=== PATIENT | female | born 1950 | race Caucasian/White ===

== ENCOUNTER 2016-11-18 17:16 | Emergency (ER) | payer OTHER ==
[~2016-11-18 17:16] MED LIST: ASABAYER PO; CAT1 PO; CRESTOR20 MG PO; HUMALOG SC; LAMICTAL200 MG PO; LEVEMIR SC; LISINOPRIL40 MG PO; NAUSEA MED PO; NORV10 PO; PCET PO; PRILO PO; TOPXL25 PO; TYLENOL ARTH650 MG PO; VITC500 PO
[2016-11-18 18:13] LABS: BASOPHILS 0.1 %; BASOPHILS ABSOLUTE 0.01 10/3/uL (0.0-0.16); EOSINOPHILS 0.4 %; EOSINOPHILS ABSOLUTE 0.03 10/3/uL (0.0-0.53); HEMOGLOBIN 12.3 g/dL (12.0-16.0); IMMATURE GRANULOCYTES 0.3 %; IMMATURE GRANULOCYTES ABSOLUTE 0.02 10/3/uL (0.0-0.11); LYMPHOCYTES 17.9 %; MEAN CORPUS HGB CONC 32.7 g/dL (32.0-36.0); MEAN CORPUSCULAR HEMOGLOB 28.2 pg (26.0-34.0); MEAN CORPUSCULAR VOLUME 86.2 fL (80-100); MEAN PLATELET VOLUME 10.2 fL (9.2-13.0); MONOCYTES 8.8 %; MONOCYTES ABSOLUTE 0.64 10/3/uL (0.21-1.20); NEUTROPHILS 72.5 %; NEUTROPHILS ABSOLUTE 5.25 10/3/uL (2.02-8.40); PLATELET COUNT 235 10/3/uL (150-400); RBC DISTRIBUTION WIDTH 14.1 % (12.0-16.0); RED CELL COUNT 4.36 10/6/uL (4.0-5.6); WHITE BLOOD CELLS 7.3 10/3/uL (4.5-10.5)
[2016-11-18 18:15] LABS: HEMATOCRIT 37.6 % (36.0-48.0); MANUAL DIFF NO %
[2016-11-18 18:21] LABS: INTERNATIONAL NORMAL RATI 1.2 UNITS (-); PARTIAL THROMBO TIME 33.3 SEC (22.5-37.2); PROTIME (NOT ORD) 14.9 SEC (12.0-14.5)
[2016-11-18 18:30] LABS: BUN (BLOOD UREA NITROGEN) 15 MG/DL (6-23); CALCIUM, SERUM 8.3 MG/DL (8.5-10.4); CHEST PAIN PROFILE TAT 0 Hrs 21 Mins; CHLORIDE, SERUM 106 MMOL/L (96-112); CO2 (CARBON DIOXIDE) 26 MMOL/L (24-34); CREATININE 1.02 MG/DL (0.55-1.02); GFR AFRICAN AMERICAN 67 ML/MIN (>=60); GFR NON AFRICAN AMERICAN 58 ML/MIN (>=60); GLUCOSE, SERUM 95 MG/DL (60-99); POTASSIUM, SERUM 3.6 MMOL/L (3.5-5.3); SODIUM, SERUM 140 MMOL/L (135-148); TROPONIN I 0.02 NG/ML (<0.05)
[2016-11-18 21:19] LABS: INFLUENZA A SCREEN NEGATIVE (NEGATIVE); INFLUENZA B SCREEN NEGATIVE (NEGATIVE)
== END 2016-11-18 22:30 | disposition home or self-care (01) ==
LOC: ER 17:16
PROVIDERS: Emergency Medicine
DX: B34.9 Viral infection, unspecified (principal); I10 Essential (primary) hypertension; K21.9 Gastro-esophageal reflux disease without esophagitis; F32.9 Major depressive disorder, single episode, unspecified; F41.9 Anxiety disorder, unspecified; Z87.442 Personal history of urinary calculi; Z90.710 Acquired absence of both cervix and uterus; Z86.73 Personal history of transient ischemic attack (TIA), and cerebral infarction without residual deficits; Z88.0 Allergy status to penicillin; Z88.5 Allergy status to narcotic agent; Z79.4 Long term (current) use of insulin; Z79.82 Long term (current) use of aspirin; Z79.899 Other long term (current) drug therapy
CPT/HCPCS: 71020; 80048; 83735; 84484; 85025; 85610; 85730; 87804; 93005; 99285

== ENCOUNTER 2016-11-20 19:16 | Inpatient (IN) | payer OTHER ==
--- NOTE | ~2016-11-20 | DS ---
Discharge Summary [facility] [address] [place]. [address] NAME: JULISSA JOHNSON : 54 STATUS : DIS IN PAT#: [id number] AGE: 66 ADM/REG DATE : 11/21/16 MR#: [id number] REPORT SERV DATE: 11/26/16 DICTATED BY: ELLIE BULL DATE: 11/25/16 REPORT STATUS : Draft TRANSCRIBED BY: MODL DATE: 11/25/16 ADMISSION DATE: 11/21/2016 DISCHARGE DATE: 11/25/2016 DISCHARGE DIAGNOSES: 1. Acute hypoxic respiratory failure, resolved. The patient does not require home oxygen. She is ambulating without problem without the oxygen supplement at the time of discharge. 2. Uncontrolled hypertension. Hypertensive medication was changed on this admission to control better the blood pressure. 3. Uncontrolled diabetes. A1c was 8.7. 4. Morbid obesity. 5. Noncompliance with medical treatment. HISTORY OF PRESENT ILLNESS: This is a 66-year-old obese female patient who came to the hospital with shortness of breath from Dr. Mata's office. Please see dictated H and P. HOSPITAL COURSE: She was admitted to the hospital with hypoxic respiratory failure. Initially, the patient had some infectious process going on due to past significant pneumonia history. However, all the data point to that the patient has issue with volume. She was treated with aggressive diuretics, and we were able to take the extra fluid 2 L per day for the last 3 to 4 days. After this treatment, she was improving significantly. Now, she is ambulating without the oxygen treatment and she is making good oxygen saturation with exertion. Meanwhile, also she was noted to have uncontrolled hypertension and diabetes. Her medications have been adjusted, increased. In the past, she was taken off the amlodipine due to possible lymphedema; however, I suspect that the lymphedema was related with this fluid retention. She has been on Norvasc here, did not have any other problems. We are going to continue Norvasc 10 mg twice a day along with other medication that has been increased. She was requiring more insulin dose during the hospitalization, but now she is going back to her regular regimen. Interestingly, the patient has been reported from the family member that she was not really compliant with the medical treatment and diet treatment as well. Lengthy education and prognosis were given to the patient that she needs to watch her diabetic diet and also low sodium limited diet and also lifestyle modification. She voiced understanding. Therefore, the patient maximized inpatient benefit, will be discharged to home with change of medications. DISCHARGE MEDICATIONS: 1. Amlodipine 10 mg twice a day. Discharge Summary [facility] [id number] [place]. [address] NAME: JULISSA JOHNSON : 54 STATUS : DIS IN PAT#: [id number] AGE: 66 ADM/REG DATE : 11/21/16 MR#: [id number] REPORT SERV DATE: 11/26/16 DICTATED BY: ELLIE BULL DATE: 11/25/16 REPORT STATUS : Draft TRANSCRIBED BY: MODL DATE: 11/25/16 2. Aspirin 325 mg once a day. 3. Naprosyn as needed. 4. Demadex was discontinued. She was put on Bumex 2 mg in the morning time and potassium 40 mEq a day. 5. Toujeo 60 units at night. 6. Lamictal 200 mg once in the morning time. 7. Melatonin 6 mg once at nighttime. 8. Toprol-XL 100 mg once a day. 9. Prilosec 20 mg once in the morning time. 10.Catapres was increased to 0.3 mg twice a day. 11.Tapering dose of prednisone. 12.Crestor 20 mg once in the morning. 13.Farxiga 10 mg once at nighttime. 14.Zyrtec 10 mg once a day. 15.Flonase twice a day as needed. DISPOSITION: The patient is discharged to home in stable condition. Family has been updated. The patient also recommended getting a re-evaluation for her sleep study. TIME SPENT: More than 30 minutes. EKL/MODL Ellie Bull M.D. / [id number] CC: Kane Acosta M.D.
--- NOTE | ~2016-11-20 | HP ---
History And Physical [address] [address] NAME: JULISSA JOHNSON : 54 STATUS : ADM IN PAT#: [id number] AGE: 66 ADM/REG DATE : 11/21/16 MR#: [id number] REPORT SERV DATE: 11/21/16 DICTATED BY: MARKY VARGAS DATE: 11/21/16 REPORT STATUS : Draft TRANSCRIBED BY: MODL DATE: 11/21/16 DATE OF ADMISSION: 11/21/2016 CHIEF COMPLAINT: A 66-year-old female presenting with shortness of breath. HISTORY OF PRESENT ILLNESS: The patient's history was obtained through careful interview with the patient, coupled with [facility]. The patient states that about three days prior to presentation, she began to feel ill. She immediately went to the emergency department for evaluation, but was given reassurance and no particular antibiotics. But ever since that time, she has had increasing shortness of breath, subjective fevers and chills, a prominent wheeze. She has had such a poor appetite with nausea that she has actually skipped her insulin for the last two days. She denies any vomiting. She does admit to a cough that has become increasingly productive of a yellow and pink sputum. She has had lightheadedness. She admits to chronic lymphedema, but it is no worse than baseline she describes. She has had myalgias and feels like she has "the flu." She has had a slight headache, diffuse, 6/10 severity, aching quality. No chest pain. No pleurisy. No abdominal pain. No change of bowel or bladder habit. REVIEW OF SYSTEMS: Otherwise, a 14-point review of systems was obtained and was negative. PAST MEDICAL HISTORY: 1. Diabetes. 2. Pneumonia with past Streptococcus pneumonia bacteremia. 3. Stroke. 4. Gastroesophageal reflux disorder. 5. Hypertension. 6. Elevated cholesterol. 7. Pneumothorax. 8. Depression and anxiety. 9. B12 deficiency. 10.10 year old hepatitis. PAST SURGICAL HISTORY: 1. Cholecystectomy. 2. Hysterectomy. 3. Thyroidectomy. History And Physical [address] [address] NAME: JULISSA JOHNSON : 54 STATUS : ADM IN PAT#: [id number] AGE: 66 ADM/REG DATE : 11/21/16 MR#: [id number] REPORT SERV DATE: 11/21/16 DICTATED BY: MARKY VARGAS DATE: 11/21/16 REPORT STATUS : Draft TRANSCRIBED BY: FILOMENA DATE: 11/21/16 4. VATS for a complicated parapneumonia , right pleural effusion. ALLERGIES: PENICILLIN AND MORPHINE. SOCIAL HISTORY: Never been a smoker. No alcohol abuse. She is . Has two children. Lives in [place], [place]. FAMILY HISTORY: Father with brain hemorrhage. Mother with stroke. CURRENT MEDICATIONS: Include aspirin 325 mg daily, Zyrtec 10 mg as needed, vitamin D, clonidine 0.1 mg p.o. t.i.d. vitamin B12, Farxiga 10 mg at bedtime, Flonase, ibuprofen p.r.n., glargine 60 units subcutaneous at bedtime, sliding-scale insulin, Lamictal 20 mg p.o., lisinopril 40 mg daily, Toprol-XL 25 mg daily, naproxen p.r.n., omeprazole 20 mg p.o. daily, potassium 10 mEq p.o. b.i.d., Crestor 20 mg daily, Demadex 40 mg p.o. b.i.d., berberine 1000 mg p.o. b.i.d. supplement. PHYSICAL EXAMINATION: VITAL SIGNS: Temperature 100.9, pulse 91, blood pressure 197/81, respiratory rate 22, O2 saturation 85% on room air. GENERAL: A pleasant, cooperative female. She is not in any particular distress, but just appears generally ill. HEENT: Pupils are equal, round, and reactive to light. No conjunctival pallor. No scleral icterus. Nares are patent. Oropharynx is clear of obstruction. Mildly dry mucous membranes. NECK: Trachea midline. No thyromegaly. LYMPH: No cervical lymphadenopathy. No supraclavicular lymphadenopathy. RESPIRATORY: Prominent wheezes are noted throughout examination with harsh upper respiratory rhonchi. The patient has a labored respiratory effort. No pulmonary rales. CARDIOVASCULAR: Regular rate and rhythm. No murmurs, rubs, or gallops. No extremity edema is appreciated other than chronic appearing lymph edema. ABDOMEN: Soft, nontender, nondistended. Normal bowel sounds auscultated throughout. No hepatosplenomegaly. DERMATOLOGICAL: Warm and dry extremities. No pallor. No cyanosis. PSYCHIATRIC: Normal affect. Good mood. Alert and oriented x3. LABORATORY DATA: White blood count 4.5 with 27% bands, hemoglobin 12, hematocrit 36, platelets 206. Sodium 135, potassium 4.0, chloride 100, bicarb 24, BUN 16, creatinine 1.12, glucose 486, albumin 2.6. Lactic acid 1.3. Liver enzymes within normal limits. Influenza negative. Urinalysis negative for infection. STUDIES: 1. Chest x-ray by my own evaluation shows no acute cardiopulmonary process. 2. EKG by my own evaluation shows sinus rhythm, incomplete right bundle-branch block. ASSESSMENT AND PLAN: 1. Probable sepsis. The patient has tachypnea, tachycardia 27% bands. Check blood cultures. Place on appropriate IV antibiotics. History And Physical [address] [address] NAME: JULISSA JOHNSON : 54 STATUS : ADM IN [facility]#: [id number] AGE: 66 ADM/REG DATE : 11/21/16 MR#: [id number] REPORT SERV DATE: 11/21/16 DICTATED BY: MARKY VARGAS DATE: 11/21/16 REPORT STATUS : Draft TRANSCRIBED BY: FILOMENA DATE: 11/21/16 2. Reactive airway disease. Place on DuoNeb nebulizers and p.o. prednisone. 3. Uncontrolled diabetes. Check hemoglobin A1c. Continue basal insulin. Insulin drip. 4. Hypoxic respiratory failure. Provide supportive care. SANAM/FILOMENA Marky Vargas M.D. / [id number] CC: Kane Acosta M.D.
[2016-11-20 20:04] LABS: BASOPHILS 0.2 %; BASOPHILS ABSOLUTE 0.01 10/3/uL (0.0-0.16); EOSINOPHILS 0.2 %; EOSINOPHILS ABSOLUTE 0.01 10/3/uL (0.0-0.53); ER CBC TAT 0 Hrs 08 Mins; HEMATOCRIT 36.6 % (36.0-48.0); MEAN CORPUS HGB CONC 32.8 g/dL (32.0-36.0); MEAN CORPUSCULAR VOLUME 85.3 fL (80-100); MEAN PLATELET VOLUME 10.2 fL (9.2-13.0); MONOCYTES 5.2 %; MONOCYTES ABSOLUTE 0.23 10/3/uL (0.21-1.20); NEUTROPHILS 76.4 %; PLATELET COUNT 206 10/3/uL (150-400); RBC DISTRIBUTION WIDTH 14.3 % (12.0-16.0); RED CELL COUNT 4.29 10/6/uL (4.0-5.6); WHITE BLOOD CELLS 4.5 10/3/uL (4.5-10.5)
[2016-11-20 20:11] LABS: INFLUENZA A SCREEN NEGATIVE (NEGATIVE); INFLUENZA B SCREEN NEGATIVE (NEGATIVE)
[2016-11-20 20:15] LABS: MANUAL DIFF NO %
[2016-11-20 20:22] LABS: A/G RATIO 0.8 (0.7-1.9); ALBUMIN 2.6 G/DL (3.5-5.0); ALKALINE PHOSPHATASE 113 U/L (45-117); BUN (BLOOD UREA NITROGEN) 16 MG/DL (6-23); CALCIUM, SERUM 7.8 MG/DL (8.5-10.4); CHLORIDE, SERUM 100 MMOL/L (96-112); CO2 (CARBON DIOXIDE) 24 MMOL/L (24-34); CREATININE 1.12 MG/DL (0.55-1.02); GFR AFRICAN AMERICAN 60 ML/MIN (>=60); GFR NON AFRICAN AMERICAN 52 ML/MIN (>=60); GLOBULIN 3.2 G/DL (2.5-4.1); GLUCOSE, SERUM 486 MG/DL (60-99); SGOT(AST) 20 U/L (5-40); SGPT(ALT) 13 U/L (5-65); SODIUM, SERUM 135 MMOL/L (135-148); TOTAL BILIRUBIN 0.6 MG/DL (0-1.2); TOTAL PROTEIN 5.8 G/DL (6.0-8.5)
[2016-11-20 20:58] LABS: BAND NEUTROPHILS 27 %; ER DIFF TAT 1 Hrs 02 Mins; IMMATURE GRANS ABSOLUTE (CALC) 0.05 10/3/uL (0.0-0.11); LYMPHOCYTES 14 %; LYMPHOCYTES ABSOLUTE (CALC) 0.63 10/3/uL (0.67-4.30); METAMYELOCYTES 1 %; MONOCYTES 3 %; MONOCYTES ABSOLUTE (CALC) 0.14 10/3/uL (0.21-1.20); NEUTROPHILS ABSOLUTE (CALC) 3.69 10/3/uL (2.02-8.40); PLATELET ESTIMATE ADQ (ADEQUATE); SEGMENTED NEUTROPHIL (0) 55 %; TOTAL NUCLEATED CELLS 100
[2016-11-20 21:01] LABS: BURR CELLS 1+ (3-10/OIF) (0-2/OIF)
[2016-11-20 21:04] LABS: HELMET CELLS OCC (0-2/OIF); TEARDROP SHAPED RBCS OCC (0-2/OIF)
[2016-11-21 02:18] LABS: LACTATE 1.3 MMOL/L (0.3-2.4)
[2016-11-21 03:02] LABS: ASCORBIC ACID (UR NOT ORDER) NEG (NEG); BILIRUBIN, URINE NEGATIVE (NEG); ER URINALYSIS TAT 0 Hrs 00 Mins; KETONE, URINE NEGATIVE (NEG); LEUKOCYTE ESTERASE(NOT OR NEG (NEG); NITRITE (URINE) NEG (NEG); WBC (NOT ORDERED) (RFLEX) 2 (0-5)
[2016-11-21] MEDS ORDERED: TOUJEO SC (04:05)
[2016-11-21] MEDS ORDERED: HUMALOG SC (04:06)
[2016-11-21] MEDS ORDERED: BERBERINE PO (04:07)
[2016-11-21] MEDS ORDERED: VITAMIN D31000 UNIT PO (04:07)
[2016-11-21] MEDS ORDERED: CYANO1000T PO (04:08)
[2016-11-21] MEDS ORDERED: LAMICTAL200 MG PO (04:08)
[2016-11-21] MEDS ORDERED: FARXIGA10 PO (04:09)
[2016-11-21] MEDS ORDERED: TOPXL25 PO (04:09)
[2016-11-21] MEDS ORDERED: PRILO PO (04:10)
[2016-11-21] MEDS ORDERED: CRESTOR20 MG PO (04:11)
[2016-11-21] MEDS ORDERED: LISINOPRIL40 MG PO (04:11)
[2016-11-21] MEDS ORDERED: ASABAYER PO (04:11)
[2016-11-21] MEDS ORDERED: DEMA20 PO (04:12)
[2016-11-21] MEDS ORDERED: KLOR-CON 1010 MEQ PO (04:13)
[2016-11-21] MEDS ORDERED: CAT1 PO (04:14)
[2016-11-21] MEDS ORDERED: NAP500 PO (04:15)
[2016-11-21] MEDS ORDERED: IBU400 PO (04:16)
[2016-11-21] MEDS ORDERED: ZYRTEC ALLGY10 MG PO (04:16)
[2016-11-21] MEDS ORDERED: FLONASE NAS (04:17)
[2016-11-21 08:58] LABS: INTERNATIONAL NORMAL RATI 1.2 UNITS (-); PARTIAL THROMBO TIME 36.1 SEC (22.5-37.2); PROTIME (NOT ORD) 14.6 SEC (12.0-14.5)
[2016-11-21 09:14] LABS: TROPONIN I 0.02 NG/ML (<0.05)
[2016-11-21 09:15] LABS: ULTRASENSITIVE TSH 2.42 MCIU/ML (0.358-3.740)
[2016-11-21 11:51] LABS: BE (BASE EXCESS) -2.6 MEQ/L (0 +/- 2.5); CARBOXYHEMOGLOBIN 1.5 % (0-3); HEMOBLOGIN CONTENT 12.3 G/DL (12-16); INSTRUMENT SERIAL # 8087; METHEMOGLOBIN 0.3 % (0-3); O2 CONTENT 15.5 VOL% (18-24); PCO2 (CO2 TENSION) 32 MMHG (35-45); PO2 (O2 TENSION) 59 MMHG (79-93); SAMPLE Arterial; pH 7.43 (7.37-7.43)
[2016-11-21 11:52] LABS: DEVICE ROOM AIR
[2016-11-22 05:16] LABS: HEMATOCRIT 36.6 % (36.0-48.0); HEMOGLOBIN 11.9 g/dL (12.0-16.0); MEAN CORPUS HGB CONC 32.5 g/dL (32.0-36.0); MEAN CORPUSCULAR HEMOGLOB 27.3 pg (26.0-34.0); MEAN CORPUSCULAR VOLUME 83.9 fL (80-100); MEAN PLATELET VOLUME 10.8 fL (9.2-13.0); PLATELET COUNT 215 10/3/uL (150-400); RBC DISTRIBUTION WIDTH 14.2 % (12.0-16.0); RED CELL COUNT 4.36 10/6/uL (4.0-5.6)
[2016-11-22 05:20] LABS: MANUAL DIFF YES %
[2016-11-22 05:29] LABS: CALCIUM, SERUM 8.4 MG/DL (8.5-10.4); CHLORIDE, SERUM 104 MMOL/L (96-112); CO2 (CARBON DIOXIDE) 24 MMOL/L (24-34); CREATININE 1.11 MG/DL (0.55-1.02); GFR AFRICAN AMERICAN 61 ML/MIN (>=60); GFR NON AFRICAN AMERICAN 52 ML/MIN (>=60); POTASSIUM, SERUM 3.5 MMOL/L (3.5-5.3); SODIUM, SERUM 138 MMOL/L (135-148)
[2016-11-22 05:30] LABS: BUN (BLOOD UREA NITROGEN) 23 MG/DL (6-23); GLUCOSE, SERUM 237 MG/DL (60-99)
[2016-11-22 06:09] LABS: BAND NEUTROPHILS 9 %; LYMPHOCYTES 21 %; LYMPHOCYTES ABSOLUTE (CALC) 0.84 10/3/uL (0.67-4.30); MONOCYTES 6 %; MONOCYTES ABSOLUTE (CALC) 0.24 10/3/uL (0.21-1.20); NEUTROPHILS ABSOLUTE (CALC) 2.92 10/3/uL (2.02-8.40); SEGMENTED NEUTROPHIL (0) 64 %; TOTAL NUCLEATED CELLS 100
[2016-11-22 06:10] LABS: ANISOCYTOSIS 1+ (5-10/OIF) (0-5/OIF); ELLIPTOCYTES 1+ (3-10/OIF) (0-2/OIF); HELMET CELLS OCC (0-2/OIF); PLATELET ESTIMATE ADQ (ADEQUATE); POIKILOCYTOSIS 1+ (5-10/OIF) (0-5/OIF); TEARDROP SHAPED RBCS OCC (0-2/OIF)
[2016-11-23 04:57] LABS: HEMATOCRIT 34.7 % (36.0-48.0); HEMOGLOBIN 11.4 g/dL (12.0-16.0); MEAN CORPUS HGB CONC 32.9 g/dL (32.0-36.0); MEAN CORPUSCULAR HEMOGLOB 27.5 pg (26.0-34.0); MEAN CORPUSCULAR VOLUME 83.8 fL (80-100); MEAN PLATELET VOLUME 10.9 fL (9.2-13.0); PLATELET COUNT 260 10/3/uL (150-400); RBC DISTRIBUTION WIDTH 14.4 % (12.0-16.0); RED CELL COUNT 4.14 10/6/uL (4.0-5.6)
[2016-11-23 05:04] LABS: MANUAL DIFF YES %; WHITE BLOOD CELLS 6.6 10/3/uL (4.5-10.5)
[2016-11-23 05:13] LABS: BUN (BLOOD UREA NITROGEN) 27 MG/DL (6-23); CALCIUM, SERUM 8.6 MG/DL (8.5-10.4); CHLORIDE, SERUM 104 MMOL/L (96-112); CO2 (CARBON DIOXIDE) 26 MMOL/L (24-34); CREATININE 0.99 MG/DL (0.55-1.02); GFR AFRICAN AMERICAN 70 ML/MIN (>=60); GFR NON AFRICAN AMERICAN 60 ML/MIN (>=60); GLUCOSE, SERUM 298 MG/DL (60-99); POTASSIUM, SERUM 3.7 MMOL/L (3.5-5.3); SODIUM, SERUM 140 MMOL/L (135-148)
[2016-11-23 05:52] LABS: ATYPICAL LYMPH OCC (0-2%) (0-5%); LYMPHOCYTES 30 %; LYMPHOCYTES ABSOLUTE (CALC) 1.98 10/3/uL (0.67-4.30); MONOCYTES 4 %; MONOCYTES ABSOLUTE (CALC) 0.26 10/3/uL (0.21-1.20); NEUTROPHILS ABSOLUTE (CALC) 4.36 10/3/uL (2.02-8.40); PLATELET ESTIMATE ADQ (ADEQUATE); RBC MORPHOLOGY NORM (NORMAL); SEGMENTED NEUTROPHIL (0) 66 %; TOTAL NUCLEATED CELLS 100
[2016-11-24 04:53] LABS: BASOPHILS 0.1 %; BASOPHILS ABSOLUTE 0.01 10/3/uL (0.0-0.16); EOSINOPHILS 0 %; HEMATOCRIT 35.9 % (36.0-48.0); HEMOGLOBIN 11.7 g/dL (12.0-16.0); IMMATURE GRANULOCYTES 1.3 %; LYMPHOCYTES 22.4 %; LYMPHOCYTES ABSOLUTE 1.69 10/3/uL (0.67-4.30); MEAN CORPUS HGB CONC 32.6 g/dL (32.0-36.0); MEAN CORPUSCULAR HEMOGLOB 27.7 pg (26.0-34.0); MEAN CORPUSCULAR VOLUME 84.9 fL (80-100); MEAN PLATELET VOLUME 10.8 fL (9.2-13.0); MONOCYTES 8.2 %; MONOCYTES ABSOLUTE 0.62 10/3/uL (0.21-1.20); NEUTROPHILS ABSOLUTE 5.14 10/3/uL (2.02-8.40); PLATELET COUNT 310 10/3/uL (150-400); RBC DISTRIBUTION WIDTH 14.6 % (12.0-16.0); RED CELL COUNT 4.23 10/6/uL (4.0-5.6); WHITE BLOOD CELLS 7.6 10/3/uL (4.5-10.5)
[2016-11-24 04:56] LABS: MANUAL DIFF NO %
[2016-11-24 05:10] LABS: CHLORIDE, SERUM 103 MMOL/L (96-112); CO2 (CARBON DIOXIDE) 27 MMOL/L (24-34); CREATININE 1.04 MG/DL (0.55-1.02); GFR AFRICAN AMERICAN 66 ML/MIN (>=60); GFR NON AFRICAN AMERICAN 57 ML/MIN (>=60); POTASSIUM, SERUM 3.7 MMOL/L (3.5-5.3); SODIUM, SERUM 140 MMOL/L (135-148)
[2016-11-24 05:27] LABS: BUN (BLOOD UREA NITROGEN) 34 MG/DL (6-23); GLUCOSE, SERUM 155 MG/DL (60-99)
[2016-11-25 05:52] LABS: BASOPHILS 0.1 %; BASOPHILS ABSOLUTE 0.01 10/3/uL (0.0-0.16); EOSINOPHILS 0.4 %; EOSINOPHILS ABSOLUTE 0.03 10/3/uL (0.0-0.53); HEMOGLOBIN 12.6 g/dL (12.0-16.0); IMMATURE GRANULOCYTES 2.5 %; IMMATURE GRANULOCYTES ABSOLUTE 0.21 10/3/uL (0.0-0.11); LYMPHOCYTES 35.7 %; LYMPHOCYTES ABSOLUTE 3.06 10/3/uL (0.67-4.30); MEAN CORPUS HGB CONC 32.3 g/dL (32.0-36.0); MEAN CORPUSCULAR HEMOGLOB 27.8 pg (26.0-34.0); MEAN CORPUSCULAR VOLUME 85.9 fL (80-100); MEAN PLATELET VOLUME 10.6 fL (9.2-13.0); MONOCYTES 6.9 %; MONOCYTES ABSOLUTE 0.59 10/3/uL (0.21-1.20); NEUTROPHILS 54.4 %; NEUTROPHILS ABSOLUTE 4.66 10/3/uL (2.02-8.40); PLATELET COUNT 352 10/3/uL (150-400); RBC DISTRIBUTION WIDTH 14.2 % (12.0-16.0); RED CELL COUNT 4.54 10/6/uL (4.0-5.6); WHITE BLOOD CELLS 8.6 10/3/uL (4.5-10.5)
[2016-11-25 05:53] LABS: MANUAL DIFF NO %
[2016-11-25 06:00] LABS: CALCIUM, SERUM 9.1 MG/DL (8.5-10.4); CHLORIDE, SERUM 104 MMOL/L (96-112); CO2 (CARBON DIOXIDE) 29 MMOL/L (24-34); GFR AFRICAN AMERICAN 50 ML/MIN (>=60); GFR NON AFRICAN AMERICAN 43 ML/MIN (>=60); POTASSIUM, SERUM 3.7 MMOL/L (3.5-5.3); SODIUM, SERUM 142 MMOL/L (135-148)
[2016-11-25 06:05] LABS: BUN (BLOOD UREA NITROGEN) 40 MG/DL (6-23); GLUCOSE, SERUM 99 MG/DL (60-99)
[2016-11-25] MEDS ORDERED: CAT3 PO (11:32)
[2016-11-25] MEDS ORDERED: TOPXL100 PO (11:33)
[2016-11-25] MEDS ORDERED: NORV10 PO (11:33)
[2016-11-25] MEDS ORDERED: BUM2 PO (11:34)
[2016-11-25] MEDS ORDERED: P10 PO (11:35)
[2016-11-25] MEDS ORDERED: MELATONIN5 M1 PO (11:39)
== END 2016-11-25 12:42 | disposition home or self-care (01) | DRG 189 ==
LOC: ER 19:16 → 5NO 11-21 06:39
PROVIDERS: Emergency Medicine; Hospitalist; Internal Medicine; Nurse Practitioner Acute Care
DX: J96.01 Acute respiratory failure with hypoxia (principal); E11.65 Type 2 diabetes mellitus with hyperglycemia; I10 Essential (primary) hypertension; Z68.43 Body mass index [BMI] 50.0-59.9, adult; Z79.4 Long term (current) use of insulin; Z87.01 Personal history of pneumonia (recurrent); K21.9 Gastro-esophageal reflux disease without esophagitis; F32.9 Major depressive disorder, single episode, unspecified; F41.9 Anxiety disorder, unspecified; Z90.49 Acquired absence of other specified parts of digestive tract; E53.8 Deficiency of other specified B group vitamins; Z90.710 Acquired absence of both cervix and uterus; E66.01 Morbid (severe) obesity due to excess calories; Z91.14 Patient's other noncompliance with medication regimen; Z88.0 Allergy status to penicillin; Z88.5 Allergy status to narcotic agent; Z79.82 Long term (current) use of aspirin
CPT/HCPCS: 36600; 71010; 71020; 80048; 80053; 81001; 82805; 82962; 83036; 83605; 83735; 83880; 84145; 84443; 84484; 85025; 85610; 85730; 87040; 87449; 87804; 93005; 94640; 96365; 96375; 99285; 99291; A9270-GY; C8929; J0360; J0456; Q9957